=== PATIENT | female | born 1985 | race Caucasian/White ===

== ENCOUNTER 2022-08-02 22:35 | Emergency (ER) | payer MEDICAID ==
--- NOTE | 2022-08-02 23:04 | NUR ---
CALLED FOR TRIAGE AND NO ANSWER
--- NOTE | 2022-08-02 23:15 | NUR ---
Pt PAWEL tinajero for Blood Alcohol draw.
--- NOTE | 2022-08-02 23:19 | NUR ---
Written and verbal consent obtained from patient for blood alcohol, name and verified by patient. Disinfected patient's skin with betadine that did not contain alcohol or other volatile organic compound. Collected the blood from the subject named by venipuncture, in the presence of LASD. Used a sterile, dry hypodermic needle and dry vacuum blood collection. Dry vacuum blood collection was supplied by the officer named above. Withdrew a specimen of blood from R AC of the subject named above. Inverted both blood tubes several times to ensure that the preservative and anticoagulant were thoroughly mixed in the blood specimen. I initialed blood tube labels for identification. The labeled blood tube was handed directly to the Officer named above. The blood tubes stopper remained in place while I had possession of the blood tube. The Officer placed tubes into envelope and sealed it in my presence. Envelope initialed by myself and Officer. Patient tolerated well, bandage applied, and bleeding controlled.
[2022-08-03] MEDS ORDERED: ALBMDI INH (02:28)
== END 2022-08-02 23:19 | disposition home or self-care (01) ==
LOC: SED 22:35
DX: Z02.83 Encounter for blood-alcohol and blood-drug test (principal); Z53.21 Procedure and treatment not carried out due to patient leaving prior to being seen by health care provider

== ENCOUNTER 2022-08-03 01:44 | Emergency (ER) | payer MEDICAID ==
[~2022-08-03] VITALS: Ht 160 cm; Wt 76.2 kg
[2022-08-03 01:58] VITALS: BP_SYST 131
--- NOTE | 2022-08-03 02:03 | NUR ---
PAWEL GARIBAY FOR MEDICAL CLEARANCE/ OKAY TO BOOK. PT DENIES OTHER COMPLAINS. DENIES SOB. PENDING MD GOFF.
[2022-08-03] MEDS ORDERED: ALBMDI INH (02:28)
--- NOTE | 2022-08-03 02:46 | NUR ---
PT MEDICALLY CLEARED BY DR. BRADLEY. DC PT ACCOMPANIED BY [facility] [employer] OFFICER LESLIE KNUTSON#[id number], PT [id number], NO SOB NOTED AND NOT IN ANY DISTRESS ON TIME OF DC. PT AMBULATED WITH [facility] OUT [facility]. DC INSTRUCTION AND MEDICAL CLEARANCE GIVEN TO OFFICER.
== END 2022-08-03 02:48 ==
LOC: SED 01:44
DX: Z02.89 Encounter for other administrative examinations (principal); Z76.0 Encounter for issue of repeat prescription; J45.909 Unspecified asthma, uncomplicated; Z79.899 Other long term (current) drug therapy
CPT/HCPCS: 99283